=== PATIENT | male | born 1980 | race Caucasian/White ===

== ENCOUNTER 2017-02-25 10:18 | Inpatient (IN) | payer OTHER ==
[2017-02-25] MEDS ORDERED: Sodium Chloride 0.9% 1,000 ML IV ONE ×2 (10:46→11:47)
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
[2017-02-25 11:40] LABS: CHLORIDE,CL 103 mmol/L (98-110); SODIUM,NA 138 mmol/L (136-146)
--- NOTE | 2017-02-25 11:55 | US ---
Lower extremity venous Doppler Lower extremity venous structures were interrogated demonstrating normal phasicity augmentation and competency absent posteriorly lower extremity veins without thrombus. Impression: No evidence of deep vein thrombosis
--- NOTE | 2017-02-25 11:56 | CR ---
Left tibia and fibula Left tibia and fibular radiograph from knee to ankle in 2 planes demonstrating no acute or specific bony abnormal findings. Impression: No bony abnormalities
--- NOTE | 2017-02-25 11:57 | CR ---
PA and lateral chest The heart lungs mediastinum and bony thorax are normal. Impression: Normal chest
[2017-02-25] MEDS ORDERED: Iopamidol 755 MG/ML 500 ML Multipack Bottle IVPUSH ONE (12:28)
[2017-02-25] MEDS: Piperacillin/Tazobactam 3.375 GM in Sodium Chloride 0.9% 50 ML IV SCH ×2 (12:40→17:09)
--- NOTE | 2017-02-25 12:58 | CT ---
CT scan of the right lower extremity Multiple computed tomographic sections right lower 70 were obtained with intravenous Isovue-370/100 mL, accomplished from above the knee to the lower leg Findings: In the medial soft tissues in the immediate subcutaneous position at the site of cutaneous cellulitis is a small subcutaneous fluid pocket measuring approximately 1 cm x 2 cm that is spontan eously draining. Air bubbles are present within the fluid pocket consistent with the fact that this is draining to the skin. No bony abnormalities are seen. No extensive fasciitis is identified. Impression: Small draining fluid pocket as described without significant evidence for fasciitis diff usely.
[2017-02-25] MEDS ORDERED: HYDROmorphone 2 MG/ML Syringe IVPUSH PRN (14:43)
[2017-02-25] MEDS: Enoxaparin 40 MG/0.4 ML Syringe SUBCUT SCH (16:13)
[2017-02-25] MEDS: Sodium Chloride 0.9% 1,000 ML IV SCH ×2 (16:15→21:19)
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
[2017-02-25] MEDS ORDERED: Sodium Chloride 0.9% 500 ML IV SCH (19:30)
[2017-02-25] MEDS: Lansoprazole 30 MG Orally Disintegrating Tab.CR PO SCH (20:21)
[2017-02-26] MEDS: Piperacillin/Tazobactam 3.375 GM in Sodium Chloride 0.9% 50 ML IV SCH ×5 (00:06→23:45)
[2017-02-26 05:16] LABS: CHLORIDE,CL 112 mmol/L (98-110); SODIUM,NA 141 mmol/L (136-146)
[2017-02-26] MEDS: Morphine 2 MG/ML Syringe IVPUSH PRN ×3 (06:36→11:55)
[2017-02-26] MEDS: Lansoprazole 30 MG Orally Disintegrating Tab.CR PO SCH ×2 (08:17→20:09)
[2017-02-26] MEDS: Lisinopril 10 MG Tab PO SCH (08:17)
[2017-02-26] MEDS: Ondansetron 4 MG Tab.DIS PO PRN ×2 (08:49→20:16)
[2017-02-26] MEDS: Sodium Chloride 0.9% 1,000 ML IV SCH ×2 (10:23→23:44)
--- NOTE | 2017-02-26 15:10 | PCM.SN ---
- Free Text/Narrative Note: L leg infection, no expressible materials; agree w iv abx, and repeat cbc in am ; [id number]
--- NOTE | 2017-02-26 15:18 | PCM.SURGPN ---
- General Info Date of Service: 02/26/17 - Review of Systems General: Reports: No Symptoms (pain tracted up to groin now) - Patient Data Vitals - Most Recent: Last Vital Signs Temp 97.0 F 02/26/17 12:00 Pulse 67 02/26/17 12:00 Resp 20 02/26/17 12:00 BP 155/98 H 02/26/17 12:00 Pulse Ox 98 02/26/17 12:00 Weight - Most Recent: 288 lb 11.2 oz I&O - Last 24 Hours: Intake & Output 02/26/17 02/26/17 02/26/17 06:59 14:59 22:59 Intake Total 2050 100 Output Total 600 Balance 1450 100 Lab Results Last 24 Hrs: Laboratory Results - last 24 hr 02/25/17 02/26/17 02/26/17 Range/Units 18:15 00:13 04:45 WBC 10.58 (4.0-11.0) K/uL RBC 4.40 L (4.50-5.90) M/uL Hgb 14.0 (13.0-17.0) g/dL Hct 39.1 (38.0-50.0) % MCV 88.9 (80.0-98.0) fL MCH 31.8 (27.0-32.0) pg MCHC 35.8 (31.0-37.0) g/dL RDW Std Deviation 39.8 (28.0-62.0) fl RDW Coeff of Kelsey 12 (11.0-15.0) % Plt Count 326 (150-400) K/uL MPV 9.50 (7.40-12.00) fL Neut % (Auto) 62.1 (48.0-80.0) % Lymph % (Auto) 27.8 (16.0-40.0) % Grand % (Auto) 8.3 (0.0-15.0) % Eos % (Auto) 1.5 (0.0-7.0) % Baso % (Auto) 0.3 (0.0-1.5) % Neut # (Auto) 6.6 H (1.4-5.7) K/uL Lymph # (Auto) 2.9 H (0.6-2.4) K/uL Grand # (Auto) 0.9 H (0.0-0.8) K/uL Eos # (Auto) 0.2 (0.0-0.7) K/uL Baso # (Auto) 0.0 (0.0-0.1) K/uL Nucleated RBC % 0.0 /100WBC Nucleated RBCs # 0 K/uL Lactate 2.4 H 1.6 (0.20-2.00) mmol/L Sodium (136-146) mmol/L Potassium (3.5-5.1) mmol/L Chloride (98-110) mmol/L Carbon Dioxide (21-31) mmol/L BUN (6.0-23.0) mg/dL Creatinine (0.6-1.5) mg/dL Est Cr Clr Drug Dosing mL/min Estimated GFR (MDRD) ml/min Glucose (60-110) mg/dL Calcium (8.8-10.8) mg/dL Vancomycin Trough (5-15) ug/mL 02/26/17 02/26/17 Range/Units 04:45 11:38 WBC (4.0-11.0) K/uL RBC (4.50-5.90) M/uL Hgb (13.0-17.0) g/dL Hct (38.0-50.0) % MCV (80.0-98.0) fL MCH (27.0-32.0) pg MCHC (31.0-37.0) g/dL RDW Std Deviation (28.0-62.0) fl RDW Coeff of Kelsey (11.0-15.0) % Plt Count (150-400) K/uL MPV (7.40-12.00) fL Neut % (Auto) (48.0-80.0) % Lymph % (Auto) (16.0-40.0) % Grand % (Auto) (0.0-15.0) % Eos % (Auto) (0.0-7.0) % Baso % (Auto) (0.0-1.5) % Neut # (Auto) (1.4-5.7) K/uL Lymph # (Auto) (0.6-2.4) K/uL Grand # (Auto) (0.0-0.8) K/uL Eos # (Auto) (0.0-0.7) K/uL Baso # (Auto) (0.0-0.1) K/uL Nucleated RBC % /100WBC Nucleated RBCs # K/uL Lactate (0.20-2.00) mmol/L Sodium 141 (136-146) mmol/L Potassium 4.3 (3.5-5.1) mmol/L Chloride 112 H (98-110) mmol/L Carbon Dioxide 22 (21-31) mmol/L BUN 11 (6.0-23.0) mg/dL Creatinine 0.8 (0.6-1.5) mg/dL Est Cr Clr Drug Dosing 148.42 mL/min Estimated GFR (MDRD) > 60.0 ml/min Glucose 107 (60-110) mg/dL Calcium 8.5 L (8.8-10.8) mg/dL Vancomycin Trough 12.7 (5-15) ug/mL Med Orders - Current: Current Medications Enoxaparin Sodium (Lovenox) 40 mg SUBCUT DAILY [facility] Last Admin: 02/25/17 16:13 Dose: Not Given Piperacillin Sod/Tazobactam (Sod 3.375 gm/ Sodium Chloride) 50 mls @ 100 mls/ hr IV Q6H [facility] Last Admin: 02/26/17 12:00 Dose: 100 mls/hr Vancomycin HCl 1,500 mg/ (Sodium Chloride) 500 mls @ 250 mls/hr IV Q8H [facility] Last Admin: 02/26/17 13:27 Dose: 250 mls/hr Sodium Chloride (Normal Saline) 1,000 mls @ 125 mls/hr IV ASDIRECTED [facility] Last Admin: 02/26/17 10:23 Dose: 125 mls/hr Ibuprofen (Motrin) 400 mg PO Q4H PRN PRN Reason: Headache Lansoprazole (Prevacid Solutab) 30 mg PO BID [facility] Last Admin: 02/26/17 08:17 Dose: 30 mg Lisinopril (Prinivil) 10 mg PO DAILY [facility] Last Admin: 02/26/17 08:17 Dose: 10 mg Morphine Sulfate (Morphine) 2 mg IVPUSH Q2H PRN PRN Reason: Pain Last Admin: 02/26/17 11:55 Dose: 2 mg Ondansetron HCl (Zofran Odt) 4 mg PO Q4H PRN PRN Reason: nausea, able to take PO Last Admin: 02/26/17 08:49 Dose: 4 mg Vancomycin HCl (Pharmacy To Dose - Vancomycin) 1 dose .XX ASDIRECTED LE Discontinued Medications Hydromorphone HCl (Dilaudid) 0.25 mg IVPUSH Q2H PRN PRN Reason: Pain (severe 7-10) Last Admin: 02/25/17 15:32 Dose: 0.25 mg Sodium Chloride (Normal Saline) 1,000 mls @ 999 mls/hr IV STAT ONE Stop: 02/25/17 11:46 Last Admin: 02/25/17 11:03 Dose: 999 mls/hr Sodium Chloride (Normal Saline) 1,000 mls @ 999 mls/hr IV STAT ONE Stop: 02/25/17 12:47 Last Admin: 02/25/17 12:39 Dose: 300 mls/hr Sodium Chloride (Normal Saline) 500 mls @ 500 mls/hr IV STAT LE Stop: 02/25/17 20:29 Last Admin: 02/25/17 20:10 Dose: 500 mls/hr Iopamidol (Isovue Multipack-370 (76%)) 100 ml IVPUSH ONETIME ONE Stop: 02/25/17 12:29 Last Admin: 02/25/17 12:29 Dose: 100 ml - Exam Extremities: Normal Range of Motion, No Pedal Edema (L leg wound exam unchanged ; minimal drainage) - Problem List Review Problem List Initiated/Reviewed/Updated: Yes - My Orders Last 24 Hours: Active Orders 24 hr Category Date Time Status Patient Status [ADT] Routine ADT 02/25/17 14:43 Active Intake and Output [RC] Q12H Care 02/25/17 14:44 Active Notify Provider Consults [RC] ASDIRECTED Care 02/25/17 15:08 Active Oxygen Therapy [RC] PRN Care 02/25/17 14:43 Active Pulse Oximetry [RC] PRN Care 02/25/17 14:44 Active Up With Assistance [RC] ASDIRECTED Care 02/25/17 14:43 Active VTE/DVT Education [RC] PER UNIT ROUTINE Care 02/25/17 14:43 Active Vital Signs [RC] Q4H Care 02/25/17 14:43 Active Consult to Physician [CONS] Routine Cons 02/25/17 15:07 Active BASIC METABOLIC PANEL,BMP [CHEM] AM Lab 02/27/17 05:11 Ordered BASIC METABOLIC PANEL,BMP [CHEM] AM Lab 02/28/17 05:11 Ordered BASIC METABOLIC PANEL,BMP [CHEM] AM Lab 03/01/17 05:11 Ordered CBC WITH AUTO DIFF [HEME] AM Lab 02/27/17 05:11 Ordered CBC WITH AUTO DIFF [HEME] AM Lab 02/28/17 05:11 Ordered CBC WITH AUTO DIFF [HEME] AM Lab 03/01/17 05:11 Ordered VANCOMYCIN TROUGH [CHEM] Routine Lab 02/28/17 11:30 Ordered Enoxaparin [Lovenox] Med 02/25/17 14:45 Hold 40 mg SUBCUT DAILY Ibuprofen [Motrin] Med 02/25/17 19:31 Active 400 mg PO Q4H PRN Lansoprazole [Prevacid Solutab] Med 02/25/17 21:00 Active 30 mg PO BID Lisinopril [Prinivil] Med 02/26/17 09:00 Active 10 mg PO DAILY Morphine Med 02/25/17 19:16 Active 2 mg IVPUSH Q2H PRN Ondansetron [Zofran ODT] Med 02/25/17 14:43 Active 4 mg PO Q4H PRN Sodium Chloride 0.9% [Normal Saline] 1,000 ml Med 02/25/17 14:45 Active IV ASDIRECTED Resuscitation Status Routine Resus Stat 02/25/17 14:43 Ordered Medication Orders Enoxaparin Sodium (Lovenox) 40 mg SUBCUT DAILY [facility] Last Admin: 02/25/17 16:13 Dose: Piperacillin Sod/Tazobactam (Sod 3.375 gm/ Sodium Chloride) 50 mls @ 100 mls/ hr IV Q6H [facility] Last Admin: 02/26/17 12:00 Dose: 100 mls/hr Infusion: 02/26/17 07:15 Dose: 100 mls/hr Admin: 02/26/17 06:45 Dose: 100 mls/hr Infusion: 02/26/17 00:36 Dose: 100 mls/hr Admin: 02/26/17 00:06 Dose: 100 mls/hr Infusion: 02/25/17 17:39 Dose: 100 mls/hr Admin: 02/25/17 17:09 Dose: 100 mls/hr Infusion: 02/25/17 13:10 Dose: 100 mls/hr Admin: 02/25/17 12:40 Dose: 100 mls/hr Vancomycin HCl 1,500 mg/ (Sodium Chloride) 500 mls @ 250 mls/hr IV Q8H [facility] Last Admin: 02/26/17 13:27 Dose: 250 mls/hr Infusion: 02/26/17 06:17 Dose: 250 mls/hr Admin: 02/26/17 04:17 Dose: 250 mls/hr Infusion: 02/25/17 22:13 Dose: 250 mls/hr Admin: 02/25/17 20:13 Dose: 250 mls/hr Infusion: 02/25/17 15:18 Dose: 250 mls/hr Admin: 02/25/17 13:18 Dose: 250 mls/hr Sodium Chloride (Normal Saline) 1,000 mls @ 125 mls/hr IV ASDIRECTED [facility] Last Admin: 02/26/17 10:23 Dose: 125 mls/hr Infusion: 02/26/17 05:19 Dose: 125 mls/hr Admin: 02/25/17 21:19 Dose: 125 mls/hr Infusion: 02/25/17 21:19 Dose: 125 mls/hr Admin: 02/25/17 16:15 Dose: 125 mls/hr Ibuprofen (Motrin) 400 mg PO Q4H PRN PRN Reason: Headache Lansoprazole (Prevacid Solutab) 30 mg PO BID [facility] Last Admin: 02/26/17 08:17 Dose: 30 mg Admin: 02/25/17 20:21 Dose: 30 mg Lisinopril (Prinivil) 10 mg PO DAILY [facility] Last Admin: 02/26/17 08:17 Dose: 10 mg Morphine Sulfate (Morphine) 2 mg IVPUSH Q2H PRN PRN Reason: Pain Last Admin: 02/26/17 11:55 Dose: 2 mg Admin: 02/26/17 08:44 Dose: 2 mg Admin: 02/26/17 06:36 Dose: 2 mg Ondansetron HCl (Zofran Odt) 4 mg PO Q4H PRN PRN Reason: nausea, able to take PO Last Admin: 02/26/17 08:49 Dose: 4 mg Vancomycin HCl (Pharmacy To Dose - Vancomycin) 1 dose .XX ASDIRECTED LE - Assessment Assessment (Free Text/Narrative):: wbc dec to 10 from 23; wound continue 1v abx, and local wound care with w2d drsg change q day, ns; orthopedic consult or repeat ct scan, if "pain now tracked up to groin; groin/thigh/leg exam within normal limit though. will continue follow w you - Plan Plan (Free Text/Narrative):: wbc dec to 10 from 23; wound continue 1v abx, and local wound care with w2d drsg change q day, ns; orthopedic consult or repeat ct scan, if "pain now tracked up to groin; groin/thigh/leg exam within normal limit though. will continue follow w you
--- NOTE | 2017-02-26 19:30 | PCM.PN ---
<Roshan Dos Santos Z - Last Filed: 02/26/17 19:26> - General Info Date of Service: 02/26/17 Admission Dx/Problem (Free Text): Patient's cellulitis has significantly improved since yesterday. His inflammation and erythema has come down from the markings that we had drawn on the patient yesterday. He still is complaining of leg pain that is transitioning up his leg likely due to lymphadenopathy due to his infectious process. We will still maintain the patient on IV antibiotics. Surgical consult was placed and Dr. Bello does not feel that the patient requires an I&D at this point in time. The patient's WBC count has improved, the patient is not had any fevers, no nausea no vomiting or diarrhea or constipation. Functional Status: Reports: Pain Controlled, Tolerating Diet - Review of Systems General: Reports: No Symptoms HEENT: Reports: No Symptoms Pulmonary: Reports: No Symptoms Cardiovascular: Reports: No Symptoms Gastrointestinal: Reports: No Symptoms Musculoskeletal: Reports: Leg Pain - Patient Data Vitals - Most Recent: Last Vital Signs Temp 36.7 C 02/26/17 16:00 Pulse 64 02/26/17 16:00 Resp 22 H 02/26/17 16:00 BP 139/85 02/26/17 16:00 Pulse Ox 100 02/26/17 16:00 Weight - Most Recent: 130.952 kg I&O - Last 24 Hours: Intake & Output 02/26/17 02/26/17 02/26/17 06:59 14:59 22:59 Intake Total 2050 100 3051 Output Total 600 2000 Balance 8007 288 4247 Lab Results Last 24 Hours: Laboratory Results - last 24 hr 02/26/17 02/26/17 02/26/17 Range/Units 00:13 04:45 04:45 WBC 10.58 (4.0-11.0) K/uL RBC 4.40 L (4.50-5.90) M/uL Hgb 14.0 (13.0-17.0) g/dL Hct 39.1 (38.0-50.0) % MCV 88.9 (80.0-98.0) fL MCH 31.8 (27.0-32.0) pg MCHC 35.8 (31.0-37.0) g/dL RDW Std Deviation 39.8 (28.0-62.0) fl RDW Coeff of Kelsey 12 (11.0-15.0) % Plt Count 326 (150-400) K/uL MPV 9.50 (7.40-12.00) fL Neut % (Auto) 62.1 (48.0-80.0) % Lymph % (Auto) 27.8 (16.0-40.0) % Graham % (Auto) 8.3 (0.0-15.0) % Eos % (Auto) 1.5 (0.0-7.0) % Baso % (Auto) 0.3 (0.0-1.5) % Neut # (Auto) 6.6 H (1.4-5.7) K/uL Lymph # (Auto) 2.9 H (0.6-2.4) K/uL Graham # (Auto) 0.9 H (0.0-0.8) K/uL Eos # (Auto) 0.2 (0.0-0.7) K/uL Baso # (Auto) 0.0 (0.0-0.1) K/uL Nucleated RBC % 0.0 /100WBC Nucleated RBCs # 0 K/uL Lactate 1.6 (0.20-2.00) mmol/L Sodium 141 (136-146) mmol/L Potassium 4.3 (3.5-5.1) mmol/L Chloride 112 H (98-110) mmol/L Carbon Dioxide 22 (21-31) mmol/L BUN 11 (6.0-23.0) mg/dL Creatinine 0.8 (0.6-1.5) mg/dL Est Cr Clr Drug Dosing 148.42 mL/min Estimated GFR (MDRD) > 60.0 ml/min Glucose 107 (60-110) mg/dL Calcium 8.5 L (8.8-10.8) mg/dL Vancomycin Trough (5-15) ug/mL 02/26/17 Range/Units 11:38 WBC (4.0-11.0) K/uL RBC (4.50-5.90) M/uL Hgb (13.0-17.0) g/dL Hct (38.0-50.0) % MCV (80.0-98.0) fL MCH (27.0-32.0) pg MCHC (31.0-37.0) g/dL RDW Std Deviation (28.0-62.0) fl RDW Coeff of Kelsey (11.0-15.0) % Plt Count (150-400) K/uL MPV (7.40-12.00) fL Neut % (Auto) (48.0-80.0) % Lymph % (Auto) (16.0-40.0) % Graham % (Auto) (0.0-15.0) % Eos % (Auto) (0.0-7.0) % Baso % (Auto) (0.0-1.5) % Neut # (Auto) (1.4-5.7) K/uL Lymph # (Auto) (0.6-2.4) K/uL Graham # (Auto) (0.0-0.8) K/uL Eos # (Auto) (0.0-0.7) K/uL Baso # (Auto) (0.0-0.1) K/uL Nucleated RBC % /100WBC Nucleated RBCs # K/uL Lactate (0.20-2.00) mmol/L Sodium (136-146) mmol/L Potassium (3.5-5.1) mmol/L Chloride (98-110) mmol/L Carbon Dioxide (21-31) mmol/L BUN (6.0-23.0) mg/dL Creatinine (0.6-1.5) mg/dL Est Cr Clr Drug Dosing mL/min Estimated GFR (MDRD) ml/min Glucose (60-110) mg/dL Calcium (8.8-10.8) mg/dL Vancomycin Trough 12.7 (5-15) ug/mL Med Orders - Current: Current Medications Enoxaparin Sodium (Lovenox) 40 mg SUBCUT DAILY [facility] Last Admin: 02/25/17 16:13 Dose: Not Given Piperacillin Sod/Tazobactam (Sod 3.375 gm/ Sodium Chloride) 50 mls @ 100 mls/ hr IV Q6H [facility] Last Admin: 02/26/17 16:58 Dose: 100 mls/hr Vancomycin HCl 1,500 mg/ (Sodium Chloride) 500 mls @ 250 mls/hr IV Q8H [facility] Last Admin: 02/26/17 13:27 Dose: 250 mls/hr Sodium Chloride (Normal Saline) 1,000 mls @ 125 mls/hr IV ASDIRECTED [facility] Last Admin: 02/26/17 10:23 Dose: 125 mls/hr Ibuprofen (Motrin) 400 mg PO Q4H PRN PRN Reason: Headache Lansoprazole (Prevacid Solutab) 30 mg PO BID [facility] Last Admin: 02/26/17 08:17 Dose: 30 mg Lisinopril (Prinivil) 10 mg PO DAILY [facility] Last Admin: 02/26/17 08:17 Dose: 10 mg Morphine Sulfate (Morphine) 2 mg IVPUSH Q2H PRN PRN Reason: Pain Last Admin: 02/26/17 11:55 Dose: 2 mg Ondansetron HCl (Zofran Odt) 4 mg PO Q4H PRN PRN Reason: nausea, able to take PO Last Admin: 02/26/17 08:49 Dose: 4 mg Vancomycin HCl (Pharmacy To Dose - Vancomycin) 1 dose .XX ASDIRECTED [facility] Discontinued Medications Hydromorphone HCl (Dilaudid) 0.25 mg IVPUSH Q2H PRN PRN Reason: Pain (severe 7-10) Last Admin: 02/25/17 15:32 Dose: 0.25 mg Sodium Chloride (Normal Saline) 1,000 mls @ 999 mls/hr IV STAT ONE Stop: 02/25/17 11:46 Last Admin: 02/25/17 11:03 Dose: 999 mls/hr Sodium Chloride (Normal Saline) 1,000 mls @ 999 mls/hr IV STAT ONE Stop: 02/25/17 12:47 Last Admin: 02/25/17 12:39 Dose: 300 mls/hr Sodium Chloride (Normal Saline) 500 mls @ 500 mls/hr IV STAT LE Stop: 02/25/17 20:29 Last Admin: 02/25/17 20:10 Dose: 500 mls/hr Iopamidol (Isovue Multipack-370 (76%)) 100 ml IVPUSH ONETIME ONE Stop: 02/25/17 12:29 Last Admin: 02/25/17 12:29 Dose: 100 ml - Exam General: Alert, Oriented HEENT: Pupils Equal Lungs: Clear to Auscultation Cardiovascular: Regular Rate GI/Abdominal Exam: Normal Bowel Sounds Extremities: Other (Left leg mid tibial cellulitis with site draining, erythema improving, tenderness improving, erythema below/decreased from initial markings placed upon patient) - Problem List Review Problem List Initiated/Reviewed/Updated: Yes - My Orders Last 24 Hours: My Active Orders 02/25/17 19:16 Morphine 2 mg IVPUSH Q2H PRN 02/25/17 19:31 Ibuprofen [Motrin] 400 mg PO Q4H PRN 02/25/17 21:00 Lansoprazole [Prevacid Solutab] 30 mg PO BID 02/26/17 09:00 Lisinopril [Prinivil] 10 mg PO DAILY 02/27/17 05:11 BASIC METABOLIC PANEL,BMP [CHEM] AM CBC WITH AUTO DIFF [HEME] AM 02/28/17 05:11 BASIC METABOLIC PANEL,BMP [CHEM] AM CBC WITH AUTO DIFF [HEME] AM 03/01/17 05:11 BASIC METABOLIC PANEL,BMP [CHEM] AM CBC WITH AUTO DIFF [HEME] AM - Plan Plan:: Assessment/plan 1. Left lower leg cellulitis versus abscess and very to trauma with possible sepsis/bacteremia due to elevated lactate acid level - Patient shall continue broad-spectrum antibiotics with IV Zosyn and IV vancomycin until his blood cultures come back - Patient on pain medication with IV Dilaudid for pain control - IV fluids normal saline 125 mL per hour - CBC, BMP serial, -lactate has now normalized no longer needed to trended -general surgery states the patient does not need I&D continue medical therapy with no procedural intervention 2. Leukocytosis with a neutrophilic shift - Continue with IV antibiotics of Zosyn and vancomycin -Await cultures -Leukocytosis has now improved 3. Elevated lactate acid level today to bacteremia Lactate level has now normalized <Arnoldo Sibley - Last Filed: 02/27/17 09:25> - General Info Admission Dx/Problem (Free Text): I was present with the resident during history and examination. I discussed the case with the resident and agree with the findings and plan as documented in the residents note. - Patient Data Vitals - Most Recent: Last Vital Signs Temp 35.9 C 02/27/17 08:00 Pulse 65 02/27/17 08:00 Resp 22 H 02/27/17 08:00 BP 152/90 H 02/27/17 08:38 Pulse Ox 100 02/27/17 08:00 I&O - Last 24 Hours: Intake & Output 02/26/17 02/27/17 02/27/17 22:59 06:59 14:59 Intake Total 3551 2299 Output Total 9246 600 Balance 1550 9971 Lab Results Last 24 Hours: Laboratory Results - last 24 hr 02/26/17 02/27/17 02/27/17 Range/Units 11:38 04:30 04:30 WBC 10.77 (4.0-11.0) K/uL RBC 4.18 L (4.50-5.90) M/uL Hgb 13.4 (13.0-17.0) g/dL Hct 37.6 L (38.0-50.0) % MCV 90.0 (80.0-98.0) fL MCH 32.1 H (27.0-32.0) pg MCHC 35.6 (31.0-37.0) g/dL RDW Std Deviation 37.4 (28.0-62.0) fl RDW Coeff of Kelsey 12 (11.0-15.0) % Plt Count 334 (150-400) K/uL MPV 9.50 (7.40-12.00) fL Neut % (Auto) 56.7 (48.0-80.0) % Lymph % (Auto) 30.5 (16.0-40.0) % Graham % (Auto) 9.8 (0.0-15.0) % Eos % (Auto) 2.6 (0.0-7.0) % Baso % (Auto) 0.4 (0.0-1.5) % Neut # (Auto) 6.1 H (1.4-5.7) K/uL Lymph # (Auto) 3.3 H (0.6-2.4) K/uL Graham # (Auto) 1.1 H (0.0-0.8) K/uL Eos # (Auto) 0.3 (0.0-0.7) K/uL Baso # (Auto) 0.0 (0.0-0.1) K/uL Sodium 141 (136-146) mmol/L Potassium 4.1 (3.5-5.1) mmol/L Chloride 112 H (98-110) mmol/L Carbon Dioxide 23 (21-31) mmol/L BUN 12 (6.0-23.0) mg/dL Creatinine 0.8 (0.6-1.5) mg/dL Est Cr Clr Drug Dosing 148.42 mL/min Estimated GFR (MDRD) > 60.0 ml/min Glucose 110 (60-110) mg/dL Calcium 8.4 L (8.8-10.8) mg/dL Vancomycin Trough 12.7 (5-15) ug/mL Med Orders - Current: Current Medications Enoxaparin Sodium (Lovenox) 40 mg SUBCUT DAILY [facility] Last Admin: 02/27/17 08:42 Dose: Not Given Piperacillin Sod/Tazobactam (Sod 3.375 gm/ Sodium Chloride) 50 mls @ 100 mls/ hr IV Q6H [facility] Last Admin: 02/27/17 05:50 Dose: 100 mls/hr Vancomycin HCl 1,500 mg/ (Sodium Chloride) 500 mls @ 250 mls/hr IV Q8H [facility] Last Admin: 02/27/17 03:31 Dose: 250 mls/hr Sodium Chloride (Normal Saline) 1,000 mls @ 125 mls/hr IV ASDIRECTED [facility] Last Admin: 02/26/17 23:44 Dose: 125 mls/hr Ibuprofen (Motrin) 400 mg PO Q4H PRN PRN Reason: Headache Last Admin: 02/27/17 08:40 Dose: 400 mg Lansoprazole (Prevacid Solutab) 30 mg PO BID [facility] Last Admin: 02/27/17 08:38 Dose: 30 mg Lisinopril (Prinivil) 10 mg PO DAILY [facility] Last Admin: 02/27/17 08:38 Dose: 10 mg Morphine Sulfate (Morphine) 2 mg IVPUSH Q2H PRN PRN Reason: Pain Last Admin: 02/26/17 11:55 Dose: 2 mg Ondansetron HCl (Zofran Odt) 4 mg PO Q4H PRN PRN Reason: nausea, able to take PO Last Admin: 02/26/17 20:16 Dose: 4 mg Vancomycin HCl (Pharmacy To Dose - Vancomycin) 1 dose .XX ASDIRECTED [facility] Discontinued Medications Hydromorphone HCl (Dilaudid) 0.25 mg IVPUSH Q2H PRN PRN Reason: Pain (severe 7-10) Last Admin: 02/25/17 15:32 Dose: 0.25 mg Sodium Chloride (Normal Saline) 1,000 mls @ 999 mls/hr IV STAT ONE Stop: 02/25/17 11:46 Last Admin: 02/25/17 11:03 Dose: 999 mls/hr Sodium Chloride (Normal Saline) 1,000 mls @ 999 mls/hr IV STAT ONE Stop: 02/25/17 12:47 Last Admin: 02/25/17 12:39 Dose: 300 mls/hr Sodium Chloride (Normal Saline) 500 mls @ 500 mls/hr IV STAT LE Stop: 02/25/17 20:29 Last Admin: 02/25/17 20:10 Dose: 500 mls/hr Iopamidol (Isovue Multipack-370 (76%)) 100 ml IVPUSH ONETIME ONE Stop: 02/25/17 12:29 Last Admin: 02/25/17 12:29 Dose: 100 ml
[2017-02-26] MEDS: Ibuprofen 400 MG Tab PO PRN (20:15)
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
[2017-02-27 05:21] LABS: CHLORIDE,CL 112 mmol/L (98-110); SODIUM,NA 141 mmol/L (136-146)
[2017-02-27] MEDS: Piperacillin/Tazobactam 3.375 GM in Sodium Chloride 0.9% 50 ML IV SCH (05:50)
[2017-02-27] MEDS: Lansoprazole 30 MG Orally Disintegrating Tab.CR PO SCH (08:38)
[2017-02-27] MEDS: Lisinopril 10 MG Tab PO SCH (08:38)
[2017-02-27] MEDS: Ibuprofen 400 MG Tab PO PRN (08:40)
[2017-02-27 08:41] VITALS: BP 152/90
[2017-02-27] MEDS: Enoxaparin 40 MG/0.4 ML Syringe SUBCUT SCH (08:42)
--- NOTE | 2017-02-27 11:18 | PCM.DCSUM1 ---
<Roshan Dos Santos Z - Last Filed: 02/27/17 11:11> Discharge Summary - Hospital Course Free Text/Narrative:: Discharge Summary Date of admission: 02/25/2017 Date of discharge: 02/27/2017 Admitting diagnosis: #1. Left lower leg cellulitis versus abscess secondary to trauma rule out sepsis /bacteremia due to elevated lactate acid level #2. Acute cytosis with a neutrophilic shift #3. Elevated lactate acid level possibly bacteremia/sepsis #4. #5. Discharge diagnoses: #1. Left lower leg cellulitis improving #2. Leukocytosis improved #3. Lactate acid level normalized #4. #5. Consultations: Gen. surgery, Eugenia Martinez MD Procedures: None Hospitalization course: Patient was admitted secondary to left lower leg cellulitis. Patient was febrile with a elevated lactate acid level patient was put on broad-spectrum antibiotics with IV Zosyn and IV vancomycin with blood cultures drawn. There was concern for possible abscess formation along with possible sepsis bacteremia. General surgery was consulted general surgery assessed the patient for possible I&D. However upon evaluation of the patient's general surgery recommended no I&D. Continue broad-spectrum IV antibiotics until blood cultures come back. Patient was also put on Dilaudid IV for pain control. By day 2 of admission patient's left lower leg erythema had significantly decreased from markings that were initially placed on the left lower extremity while in the ER. Reevaluation of the leg showed once again no reason to do an I&D. Patient was complaining of upper leg pain likely secondary to lymphadenitis/lymphadenopathy due to cellulitis infection. Patient's lactic acid level has normalized. Patient is still on IV fluids 125 normal saline at that time. 02/27/2017 patient improved significantly to the point where he was ready for discharge. Patient was sent home on linezolid for 7 days. She was no longer having left lower extremity pain. Tender surgery reassess the patient prior to discharge and felt that patient was stable enough to go home as well. Disposition on discharge: Home Condition on discharge: Stable, oral antibiotics for 7 days, nonfebrile, no nausea vomiting abdominal pain or constipation. Discharge medications: Linezolid 7 days and continuation of home medication Follow-up instructions: Follow-up with Dr. Bello outpatient setting, follow-up with [facility] clinic within 1 week for primary care assessment - Discharge Data Discharge Date: 02/27/17 Discharge Disposition: Home, Self-Care 01 Condition: Fair - Patient Summary/Data Consults: Consultations 02/25/17 15:07 Consult to Physician [CONS] Routine - Patient Instructions Diet: Regular Diet as Tolerated Activity: As Tolerated Driving: May Drive Today Showering/Bathing: May Shower Wound/Incision Care: Keep Operative Site/Wound Site Clean and Dry Notify Provider of: Fever, Increased Pain, Swelling and Redness, Drainage, Nausea and/or Vomiting - Discharge Plan Prescriptions/Med Rec: Linezolid [Zyvox] 600 mg PO Q12H #14 tablet Home Medications: Home Meds Lansoprazole [Prevacid] 30 mg PO BID 02/25/17 [History] Lisinopril 10 mg PO DAILY 02/25/17 [History] Testosterone Cypionate [Depo-Testosterone] 200 mg IM Q14D 02/25/17 [History] Linezolid [Zyvox] 600 mg PO Q12H #14 tablet 02/27/17 [Rx] Patient Handouts: Linezolid tablets, Cellulitis, Adult, [id number] [facility]] Juan Bello MD [Physician] - 03/06/17 2:15 pm Tara Salcido NP [Ordering Only Provider] - 03/05/17 9:30 am - Discharge Summary/Plan Comment DC Time >30 min.: No - Patient Data Vitals - Most Recent: Last Vital Signs Temp 35.9 C 02/27/17 08:00 Pulse 65 02/27/17 08:00 Resp 22 H 02/27/17 08:00 BP 152/90 H 02/27/17 08:38 Pulse Ox 100 02/27/17 08:00 Weight - Most Recent: 130.952 kg I&O - Last 24 hours: Intake & Output 02/26/17 02/27/17 02/27/17 22:59 06:59 14:59 Intake Total 3551 2299 Output Total 2000 600 Balance 1551 3399 Lab Results - Last 24 hrs: Laboratory Results - last 24 hr 02/26/17 02/27/17 02/27/17 Range/Units 11:38 04:30 04:30 WBC 10.77 (4.0-11.0) K/uL RBC 4.18 L (4.50-5.90) M/uL Hgb 13.4 (13.0-17.0) g/dL Hct 37.6 L (38.0-50.0) % MCV 90.0 (80.0-98.0) fL MCH 32.1 H (27.0-32.0) pg MCHC 35.6 (31.0-37.0) g/dL RDW Std Deviation 37.4 (28.0-62.0) fl RDW Coeff of Kelsey 12 (11.0-15.0) % Plt Count 334 (150-400) K/uL MPV 9.50 (7.40-12.00) fL Neut % (Auto) 56.7 (48.0-80.0) % Lymph % (Auto) 30.5 (16.0-40.0) % Bowman % (Auto) 9.8 (0.0-15.0) % Eos % (Auto) 2.6 (0.0-7.0) % Baso % (Auto) 0.4 (0.0-1.5) % Neut # (Auto) 6.1 H (1.4-5.7) K/uL Lymph # (Auto) 3.3 H (0.6-2.4) K/uL Bowman # (Auto) 1.1 H (0.0-0.8) K/uL Eos # (Auto) 0.3 (0.0-0.7) K/uL Baso # (Auto) 0.0 (0.0-0.1) K/uL Sodium 141 (136-146) mmol/L Potassium 4.1 (3.5-5.1) mmol/L Chloride 112 H (98-110) mmol/L Carbon Dioxide 23 (21-31) mmol/L BUN 12 (6.0-23.0) mg/dL Creatinine 0.8 (0.6-1.5) mg/dL Est Cr Clr Drug Dosing 148.42 mL/min Estimated GFR (MDRD) > 60.0 ml/min Glucose 110 (60-110) mg/dL Calcium 8.4 L (8.8-10.8) mg/dL Vancomycin Trough 12.7 (5-15) ug/mL Med Orders - Current: Current Medications Enoxaparin Sodium (Lovenox) 40 mg SUBCUT DAILY [facility] Last Admin: 02/27/17 08:42 Dose: Not Given Piperacillin Sod/Tazobactam (Sod 3.375 gm/ Sodium Chloride) 50 mls @ 100 mls/ hr IV Q6H [facility] Last Admin: 02/27/17 05:50 Dose: 100 mls/hr Vancomycin HCl 1,500 mg/ (Sodium Chloride) 500 mls @ 250 mls/hr IV Q8H [facility] Last Admin: 02/27/17 03:31 Dose: 250 mls/hr Sodium Chloride (Normal Saline) 1,000 mls @ 125 mls/hr IV ASDIRECTED [facility] Last Admin: 02/26/17 23:44 Dose: 125 mls/hr Ibuprofen (Motrin) 400 mg PO Q4H PRN PRN Reason: Headache Last Admin: 02/27/17 08:40 Dose: 400 mg Lansoprazole (Prevacid Solutab) 30 mg PO BID [facility] Last Admin: 02/27/17 08:38 Dose: 30 mg Lisinopril (Prinivil) 10 mg PO DAILY [facility] Last Admin: 02/27/17 08:38 Dose: 10 mg Morphine Sulfate (Morphine) 2 mg IVPUSH Q2H PRN PRN Reason: Pain Last Admin: 02/26/17 11:55 Dose: 2 mg Ondansetron HCl (Zofran Odt) 4 mg PO Q4H PRN PRN Reason: nausea, able to take PO Last Admin: 02/26/17 20:16 Dose: 4 mg Vancomycin HCl (Pharmacy To Dose - Vancomycin) 1 dose .XX ASDIRECTED [facility] Discontinued Medications Hydromorphone HCl (Dilaudid) 0.25 mg IVPUSH Q2H PRN PRN Reason: Pain (severe 7-10) Last Admin: 02/25/17 15:32 Dose: 0.25 mg Sodium Chloride (Normal Saline) 1,000 mls @ 999 mls/hr IV STAT ONE Stop: 02/25/17 11:46 Last Admin: 02/25/17 11:03 Dose: 999 mls/hr Sodium Chloride (Normal Saline) 1,000 mls @ 999 mls/hr IV STAT ONE Stop: 02/25/17 12:47 Last Admin: 02/25/17 12:39 Dose: 300 mls/hr Sodium Chloride (Normal Saline) 500 mls @ 500 mls/hr IV STAT LE Stop: 02/25/17 20:29 Last Admin: 02/25/17 20:10 Dose: 500 mls/hr Iopamidol (Isovue Multipack-370 (76%)) 100 ml IVPUSH ONETIME ONE Stop: 02/25/17 12:29 Last Admin: 02/25/17 12:29 Dose: 100 ml *Q Meaningful Use (DIS) - VTE *Q VTE Criteria *Q: - Stroke *Q Stroke Criteria *Q: - AMI *Q AMI Criteria *Q: <Maryjo,Arnoldo Marinelli - Last Filed: 03/01/17 12:41> Discharge Summary - Hospital Course HPI Initial Comments: I was present with the resident during history and examination. I discussed the case with the resident and agree with the findings and plan as documented in the residents note. - Patient Summary/Data Consults: Consultations 02/25/17 15:07 Consult to Physician [CONS] Routine - Patient Data Vitals - Most Recent: Last Vital Signs Temp 35.9 C 02/27/17 08:00 Pulse 65 02/27/17 08:00 Resp 22 H 02/27/17 08:00 BP 152/90 H 02/27/17 08:38 Pulse Ox 100 02/27/17 08:00 Med Orders - Current: Current Medications Discontinued Medications Enoxaparin Sodium (Lovenox) 40 mg SUBCUT DAILY [facility] Last Admin: 02/27/17 08:42 Dose: Not Given Hydromorphone HCl (Dilaudid) 0.25 mg IVPUSH Q2H PRN PRN Reason: Pain (severe 7-10) Last Admin: 02/25/17 15:32 Dose: 0.25 mg Sodium Chloride (Normal Saline) 1,000 mls @ 999 mls/hr IV STAT ONE Stop: 02/25/17 11:46 Last Admin: 02/25/17 11:03 Dose: 999 mls/hr Piperacillin Sod/Tazobactam (Sod 3.375 gm/ Sodium Chloride) 50 mls @ 100 mls/ hr IV Q6H [facility] Last Admin: 02/27/17 05:50 Dose: 100 mls/hr Sodium Chloride (Normal Saline) 1,000 mls @ 999 mls/hr IV STAT ONE Stop: 02/25/17 12:47 Last Admin: 02/25/17 12:39 Dose: 300 mls/hr Vancomycin HCl 1,500 mg/ (Sodium Chloride) 500 mls @ 250 mls/hr IV Q8H [facility] Last Admin: 02/27/17 03:31 Dose: 250 mls/hr Sodium Chloride (Normal Saline) 1,000 mls @ 125 mls/hr IV ASDIRECTED [facility] Last Admin: 02/26/17 23:44 Dose: 125 mls/hr Sodium Chloride (Normal Saline) 500 mls @ 500 mls/hr IV STAT [facility] Stop: 02/25/17 20:29 Last Admin: 02/25/17 20:10 Dose: 500 mls/hr Ibuprofen (Motrin) 400 mg PO Q4H PRN PRN Reason: Headache Last Admin: 02/27/17 08:40 Dose: 400 mg Iopamidol (Isovue Multipack-370 (76%)) 100 ml IVPUSH ONETIME ONE Stop: 02/25/17 12:29 Last Admin: 02/25/17 12:29 Dose: 100 ml Lansoprazole (Prevacid Solutab) 30 mg PO BID [facility] Last Admin: 02/27/17 08:38 Dose: 30 mg Lisinopril (Prinivil) 10 mg PO DAILY [facility] Last Admin: 02/27/17 08:38 Dose: 10 mg Morphine Sulfate (Morphine) 2 mg IVPUSH Q2H PRN PRN Reason: Pain Last Admin: 02/26/17 11:55 Dose: 2 mg Ondansetron HCl (Zofran Odt) 4 mg PO Q4H PRN PRN Reason: nausea, able to take PO Last Admin: 02/26/17 20:16 Dose: 4 mg Vancomycin HCl (Pharmacy To Dose - Vancomycin) 1 dose .XX ASDIRECTED [facility] *Q Meaningful Use (DIS) - VTE *Q VTE Criteria *Q: - Stroke *Q Stroke Criteria *Q: - AMI *Q AMI Criteria *Q:
== END 2017-02-27 10:25 | disposition home or self-care (01) | DRG 603 ==
LOC: MW.ED 10:18 → MW.MS 13:06 → MW.ED 13:36
PROVIDERS: ADMIT Internal Medicine; ATTEND Internal Medicine
DX: L03.116 Cellulitis of left lower limb (principal); D72.829 Elevated white blood cell count, unspecified; R74.0 Nonspecific elevation of levels of transaminase and lactic acid dehydrogenase [LDH]; I10 Essential (primary) hypertension; Z88.8 Allergy status to other drugs, medicaments and biological substances; Z79.899 Other long term (current) drug therapy; Z87.891 Personal history of nicotine dependence
CPT/HCPCS: 36415; 71020; 71020-26; 73590-26-LT; 73590-LT; 73701-26-LT; 73701-LT; 80048; 80053; 80202; 83605; 85025; 87040; 93971-26-LT; 93971-LT; 96361; 96365; 96367; 99284; 99285-25; A9270-GY; J1170; J2270; J2543; J3370; J7040; J7050; Q9967